=== PATIENT | male | born 1955 | race Caucasian/White ===

== ENCOUNTER 2021-06-30 14:30 | Emergency (ER) | payer MEDICARE, BC ==
[2021-06-30] MEDS ORDERED: Bacitracin Oint 1 GM U/D Packet TOP STA (16:10)
[2021-06-30 17:27] VITALS: BP 128/92; PULSE 78
== END 2021-06-30 17:27 | disposition home or self-care (01) ==
LOC: MW.ED 14:30
DX: S00.03XA Contusion of scalp, initial encounter (principal); I48.91 Unspecified atrial fibrillation; Z79.01 Long term (current) use of anticoagulants; Z79.82 Long term (current) use of aspirin; Z79.899 Other long term (current) drug therapy; W11.XXXA Fall on and from ladder, initial encounter
CPT/HCPCS: 36415; 70450; 70450-26; 72125; 72125-26; 85610; 99283; 99284-25